=== PATIENT | male | born 1985 | race Caucasian/White ===

== ENCOUNTER 2017-06-09 15:17 | Emergency (ER) | payer SELFPAY ==
[~2017-06-09] VITALS: Ht 160 cm; Wt 47.6 kg
[~2017-06-09 15:17] MED LIST: AMOXICILLIN500 MG PO; ANAPROX DS550 MG PO; CLINDAMYCIN HC300 MG PO; DAYPRO600 M1 PO; FLEXERIL10 MG PO; FLEXERIL5 MG PO; HYDROCODONE BIT1 T11 PO; IBU800 MG PO; MOTRIN800 MG PO; NAPROSYN500 MG PO; NKHM; NORCO 325 MG-51 TAB PO; PREDNICOT20 MG PO; PREDNISONE20 MG PO; ROBAXIN750 MG PO; TYLENOL325 M1 PO; ULTRAM50 MG PO; VICODIN 5/500 505 MG PO; XANAX0.5 MG PO
[2017-06-09 15:59] LABS: HEMATOCRIT 52.4 % (42.0-52.0); HEMOGLOBIN 17.9 g/dl (14.0-18.0); MEAN CELL VOLUME 85.8 fl (80.0-94.0); MEAN CORPUSCULAR HGB 29.3 pg (27.0-31.0); MEAN CORPUSCULAR HGB CONC 34.2 g/dl (33.0-37.0); MEAN PLATELET VOLUME 9.9 fl (9.6-12.3); PLATELET COUNT AUTOMATED 334 10*3/uL (130-400); RED BLOOD COUNT 6.11 10*6/uL (4.50-5.90); RED CELL DISTRI WIDTH 13.5 % (0-14.5); WHITE BLOOD COUNT 25.6 10*3/uL (4.8-10.8)
[2017-06-09 16:14] LABS: ALBUMIN 4.9 gm/dl (3.1-4.5); ALKALINE PHOSPHATASE 81 U/L (45-117); BUN 20 mg/dl (7-24); CHLORIDE 102 mmol/L (98-107); LIPASE 76 U/L (73-393); SGOT/AST 30 IU/L (3-35); SGPT/ALT 22 U/L (12-78); SODIUM 138 mmol/L (136-145); TOTAL PROTEIN 8.7 gm/dL (6.4-8.2)
[2017-06-09 16:20] LABS: TOTAL CELLS COUNTED 100 #CELLS
[2017-06-09 16:21] LABS: PLATELET SUFFICIENCY NORMAL (NORMAL)
[2017-06-09 18:39] LABS: BILIRUBIN NEGATIVE (NEGATIVE); BLOOD NEGATIVE (NEGATIVE); CLARITY CLEAR (CLEAR); COLOR YELLOW (YELLOW); GLUCOSE NEGATIVE (NEGATIVE); KETONE 2+ (NEGATIVE); LEUKO ESTERASE NEGATIVE (NEGATIVE); NITRITE NEGATIVE (NEGATIVE); SPECIFIC GRAVITY <= 1.005 (1.005-1.030); UROBILINOGEN 0.2 E.U./dl (0.2-1.0)
[2017-06-09 18:47] LABS: RBC 0-2 rbc/hpf (0-2); WBC 0-2 wbc/hpf (0-5)
[2017-06-09] MEDS ORDERED: ZOFRAN ODT4 MG SL (18:48)
== END 2017-06-09 18:54 | disposition home or self-care (01) ==
LOC: ED 15:17
PROVIDERS: Nurse Practitioner Family
DX: K52.9 Noninfective gastroenteritis and colitis, unspecified (principal); F17.200 Nicotine dependence, unspecified, uncomplicated; Z98.890 Other specified postprocedural states

== ENCOUNTER 2018-12-15 19:12 | Emergency (ER) | payer SELFPAY ==
[~2018-12-15] VITALS: Ht 160 cm; Wt 47.6 kg
[~2018-12-15 19:12] MED LIST changes: +ZOFRAN ODT4 MG SL
[2018-12-15 19:35] LABS: BASO # 0.1 10*3/uL (0.0-0.1); BASO % 0.9 % (0.0-1.0); EOS # 0.2 10*3/uL (0.0-0.4); EOS % 1.6 % (1.0-4.0); HEMATOCRIT 44.9 % (42.0-52.0); HEMOGLOBIN 15.4 g/dl (14.0-18.0); LYMPH # 3.1 10*3/uL (1.3-4.4); LYMPH % 28.7 % (27.0-41.0); MEAN CELL VOLUME 86.8 fl (80.0-94.0); MEAN CORPUSCULAR HGB 29.8 pg (27.0-31.0); MEAN CORPUSCULAR HGB CONC 34.3 g/dl (33.0-37.0); MEAN PLATELET VOLUME 9.7 fl (9.6-12.3); MONO # 0.8 10*3/uL (0.1-1.0); MONO % 7.4 % (3.0-9.0); NEUT # 6.6 10*3/uL (2.3-7.9); NEUT % 61.1 % (47.0-73.0); PLATELET COUNT AUTOMATED 286 10*3/uL (130-400); RED BLOOD COUNT 5.17 10*6/uL (4.50-5.90); RED CELL DISTRI WIDTH 12.6 % (0-14.5); WHITE BLOOD COUNT 10.8 10*3/uL (4.8-10.8)
[2018-12-15 19:37] LABS: BILIRUBIN 1+ (NEGATIVE); BLOOD NEGATIVE (NEGATIVE); CLARITY SL CLOUDY (CLEAR); COLOR YELLOW (YELLOW); GLUCOSE NEGATIVE (NEGATIVE); KETONE 2+ (NEGATIVE); LEUKO ESTERASE NEGATIVE (NEGATIVE); NITRITE NEGATIVE (NEGATIVE); PH 5.5 (5.0-9.0); SPECIFIC GRAVITY >= 1.030 (1.005-1.030); UROBILINOGEN 0.2 E.U./dl (0.2-1.0)
[2018-12-15 19:46] LABS: BACTERIA 1+; MUCOUS 3+; RBC 0-2 rbc/hpf (0-2); WBC 0-2 wbc/hpf (0-5)
[2018-12-15 19:50] LABS: ALBUMIN 4.4 gm/dl (3.1-4.5); ALKALINE PHOSPHATASE 57 U/L (45-117); BUN 12 mg/dl (7-24); CHLORIDE 103 mmol/L (98-107); CREATININE 0.96 mg/dL (0.70-1.30); LIPASE 67 U/L (73-393); SGOT/AST 13 IU/L (3-35); SGPT/ALT 12 U/L (12-78); SODIUM 138 mmol/L (136-145); TOTAL PROTEIN 7.6 gm/dL (6.4-8.2)
== END 2018-12-15 20:59 | disposition home or self-care (01) ==
LOC: ED 19:12
PROVIDERS: Student in an Organized Health Care Education/Training Program
DX: K59.00 Constipation, unspecified (principal); R11.2 Nausea with vomiting, unspecified; F17.200 Nicotine dependence, unspecified, uncomplicated

== ENCOUNTER 2018-12-17 15:38 | Inpatient (IN) | payer SELFPAY ==
[~2018-12-17] VITALS: Ht 160 cm; Wt 43.2 kg
[2018-12-17 15:39] VITALS: BP 154/67
[2018-12-17 16:46] LABS: BASO # 0.1 10*3/uL (0.0-0.1); BASO % 0.6 % (0.0-1.0); EOS # 0.1 10*3/uL (0.0-0.4); EOS % 0.7 % (1.0-4.0); HEMATOCRIT 47.2 % (42.0-52.0); HEMOGLOBIN 16.2 g/dl (14.0-18.0); LYMPH # 2.2 10*3/uL (1.3-4.4); MEAN CELL VOLUME 86.1 fl (80.0-94.0); MEAN CORPUSCULAR HGB 29.6 pg (27.0-31.0); MEAN CORPUSCULAR HGB CONC 34.3 g/dl (33.0-37.0); MEAN PLATELET VOLUME 10.1 fl (9.6-12.3); MONO # 0.7 10*3/uL (0.1-1.0); MONO % 5.2 % (3.0-9.0); NEUT # 10.7 10*3/uL (2.3-7.9); NEUT % 77.2 % (47.0-73.0); PLATELET COUNT AUTOMATED 276 10*3/uL (130-400); RED BLOOD COUNT 5.48 10*6/uL (4.50-5.90); RED CELL DISTRI WIDTH 12.5 % (0-14.5); WHITE BLOOD COUNT 13.9 10*3/uL (4.8-10.8)
[2018-12-17 16:56] VITALS: BP 142/78
[2018-12-17 17:01] LABS: ALBUMIN 4.5 gm/dl (3.1-4.5); ALKALINE PHOSPHATASE 55 U/L (45-117); BUN 12 mg/dl (7-24); CHLORIDE 103 mmol/L (98-107); CREATININE 0.96 mg/dL (0.70-1.30); LIPASE 75 U/L (73-393); POTASSIUM 4.3 mmol/L (3.5-5.1); SGOT/AST 12 IU/L (3-35); SGPT/ALT 12 U/L (12-78); SODIUM 137 mmol/L (136-145)
--- NOTE | 2018-12-17 17:01 | NUR ---
PT WITH MILD PAIN RELIEF NOTED,SAFETY PRECAUTIONS INTACT,CALL LIGHT WITHIN REACH ABD FAMILY @ BEDSIDE.
[2018-12-17 18:04] LABS: BILIRUBIN NEGATIVE (NEGATIVE); BLOOD NEGATIVE (NEGATIVE); CLARITY CLEAR (CLEAR); COLOR YELLOW (YELLOW); GLUCOSE NEGATIVE (NEGATIVE); KETONE 3+ (NEGATIVE); LEUKO ESTERASE NEGATIVE (NEGATIVE); NITRITE NEGATIVE (NEGATIVE); SPECIFIC GRAVITY 1.015 (1.005-1.030)
[2018-12-17 18:14] LABS: WBC 0-2 wbc/hpf (0-5)
[2018-12-17 18:54] VITALS: BP 130/70
[2018-12-17 19:33] VITALS: BP 137/74
[2018-12-17 21:56] VITALS: BP 117/67
[2018-12-17 22:05] VITALS: BP 125/63
--- NOTE | 2018-12-17 22:05 | NUR ---
Time: 2204 A 33 year old MALE admitted to under services of OLEGARIO FORD DO. Pt. arrived via ambulatory from ER. Chief complaint: ABDOMINAL PAIN. PT ORIENTED TO UNIT/FLOOR AND CALL LIGHT. BELONGINGS ACCOUNTED FOR. ADMISSION ASSESSMENT COMPLETED. PT STATES HIS PAIN IS A 2/10 AT THIS TIME. HE DENIES ANY NEEDS. DARRYL MARSHALL
--- NOTE | 2018-12-17 22:50 | NUR ---
DR. SAMSON NOTIFIED PT IS REQUESTING TO LEAVE AMA FOR INSURANCE REASONS.
--- NOTE | 2018-12-17 23:17 | NUR ---
Patient signed out AMA. Patient encouraged to stay and advised of possible consequences of premature discharge. Physician Dr. Trivedi and underwriting clerks supervisor Lucía notified. Patient instructed what to do regarding care post-departure from the hospital; emergency phone numbers provided. Patent ambulated off floor with . DARRYL MARSHALL
== END 2018-12-17 23:17 | disposition left against medical advice (07) | DRG 394 ==
LOC: ED 15:38 → EDHOLD 20:14 → 4E 21:47
PROVIDERS: Emergency Medicine; ADMIT Internal Medicine
DX: K37 Unspecified appendicitis (principal); Z68.1 Body mass index [BMI] 19.9 or less, adult; R63.0 Anorexia; Z53.21 Procedure and treatment not carried out due to patient leaving prior to being seen by health care provider; F17.200 Nicotine dependence, unspecified, uncomplicated; Z82.5 Family history of asthma and other chronic lower respiratory diseases; Z80.1 Family history of malignant neoplasm of trachea, bronchus and lung; Z81.2 Family history of tobacco abuse and dependence

== ENCOUNTER 2020-11-09 12:39 | Emergency (ER) | payer SELFPAY ==
[~2020-11-09] VITALS: Ht 157.4 cm; Wt 47.6 kg
[2020-11-09] MEDS ORDERED: IBUPROFEN600 MG PO (13:56)
[2020-11-09] MEDS ORDERED: AUGMENTIN 875875 MG PO (13:56)
== END 2020-11-09 14:32 | disposition home or self-care (01) ==
LOC: ED 12:39
DX: K08.89 Other specified disorders of teeth and supporting structures (principal); Z98.890 Other specified postprocedural states

== ENCOUNTER 2020-11-24 12:14 | Emergency (ER) | payer SELFPAY ==
[~2020-11-24] VITALS: Wt 47.6 kg
[~2020-11-24 12:14] MED LIST changes: +AUGMENTIN 875875 MG PO; +IBUPROFEN600 MG PO
[2020-11-24] MEDS ORDERED: NAPROXEN500 M1 PO (12:38)
[2020-11-24] MEDS ORDERED: CLEOCIN HCL150 MG PO (12:38)
== END 2020-11-24 12:55 | disposition home or self-care (01) ==
LOC: ED 12:14
DX: K08.89 Other specified disorders of teeth and supporting structures (principal); F17.200 Nicotine dependence, unspecified, uncomplicated; Z98.890 Other specified postprocedural states

== ENCOUNTER 2021-04-09 12:53 | Emergency (ER) | payer OTHER ==
[~2021-04-09] VITALS: Ht 157.4 cm; Wt 47.6 kg
[~2021-04-09 12:53] MED LIST changes: +CLEOCIN HCL150 MG PO; +NAPROXEN500 M1 PO
[2021-04-09] MEDS ORDERED: CYCLOBENZAPRINE10 MG PO (13:25)
[2021-04-09] MEDS ORDERED: NAPROSYN500 MG PO (13:25)
== END 2021-04-09 13:31 | disposition home or self-care (01) ==
LOC: ED 12:53
DX: S16.1XXA Strain of muscle, fascia and tendon at neck level, initial encounter (principal); M25.512 Pain in left shoulder; M54.6 Pain in thoracic spine; F17.200 Nicotine dependence, unspecified, uncomplicated; X58.XXXA Exposure to other specified factors, initial encounter; Y93.89 Activity, other specified; Y92.89 Other specified places as the place of occurrence of the external cause; Y99.8 Other external cause status

== ENCOUNTER → 2021-07-04 | Outpatient (CLI) | payer OTHER ==
[~2021-07-04] MED LIST changes: +CYCLOBENZAPRINE10 MG PO
== END | disposition home or self-care (01) ==
LOC: RAD 11:54
PROVIDERS: ATTEND Nurse Practitioner Family
DX: M54.2 Cervicalgia (principal)

== ENCOUNTER 2021-08-11 17:36 | Emergency (ER) | payer OTHER ==
[2021-08-11 19:36] LABS: BASO # 0.1 10*3/uL (0.0-0.1); BASO % 1.3 % (0.0-1.0); EOS # 0.1 10*3/uL (0.0-0.4); EOS % 2.1 % (1.0-4.0); HEMATOCRIT 43.3 % (42.0-52.0); LYMPH % 19.8 % (27.0-41.0); MEAN CELL VOLUME 85.1 fl (80.0-94.0); MEAN CORPUSCULAR HGB 28.9 pg (27.0-31.0); MEAN CORPUSCULAR HGB CONC 33.9 g/dl (33.0-37.0); MEAN PLATELET VOLUME 9.4 fl (9.6-12.3); MONO # 0.7 10*3/uL (0.1-1.0); MONO % 14.2 % (3.0-9.0); NEUT # 3.3 10*3/uL (2.3-7.9); NEUT % 62.4 % (47.0-73.0); PLATELET COUNT AUTOMATED 218 10*3/uL (130-400); RED BLOOD COUNT 5.09 10*6/uL (4.50-5.90); RED CELL DISTRI WIDTH 12.8 % (0-14.5); WHITE BLOOD COUNT 5.2 10*3/uL (4.8-10.8)
[2021-08-11 19:55] LABS: ALKALINE PHOSPHATASE 49 U/L (45-117); BUN 10 mg/dl (7-24); CHLORIDE 102 mmol/L (98-107); CREATININE 0.98 mg/dL (0.70-1.30); POTASSIUM 4.4 mmol/L (3.5-5.1); SGOT/AST 11 IU/L (3-35); SGPT/ALT 12 U/L (12-78); SODIUM 135 mmol/L (136-145); TOTAL PROTEIN 6.9 gm/dL (6.4-8.2)
== END 2021-08-11 21:46 | disposition home or self-care (01) ==
LOC: ED 17:36
PROVIDERS: Nurse Practitioner
DX: J21.9 Acute bronchiolitis, unspecified (principal); Z98.890 Other specified postprocedural states; F17.200 Nicotine dependence, unspecified, uncomplicated